=== PATIENT | male | born 1975 | race Caucasian/White ===

== ENCOUNTER 2023-02-13 19:28 | Inpatient (IN) | payer MEDICAID ==
[~2023-02-13] VITALS: Ht 177.8 cm; Wt 92.5 kg
[~2023-02-13 19:28] MED LIST: METF-1253
[2023-02-13 19:51] VITALS: BP 100/69; PULSE 100; RESP 16; TEMP 97.9; O2SAT 100
--- NOTE | 2023-02-13 20:01 | NUR ---
TO BED 6 FOLLOWING TRIAGE
--- NOTE | 2023-02-13 20:15 | NUR ---
48 Y/O M, AMBULATORY FROM HOME WITH C/O ABD PAIN ASSOCIATED WITH N/V AND DIARRHEA X 2-3 DAYS. DENIES FEVER, CHILL, BLOOD IN EMESIS. MOTHER AT BEDSIDE.
--- NOTE | 2023-02-13 20:20 | NUR ---
MD MCCORMICK AT BEDSIDE EXAMINING PT.
[2023-02-13] MEDS ORDERED: ONDANSETRON 4 MG/2 ML VIAL IVP ONE (20:30)
[2023-02-13] MEDS ORDERED: DICYCLOMINE 20 MG/2 ML VIAL IM ONE (20:30)
[2023-02-13] MEDS ORDERED: NACL 0.9% 1,000 ML IV ONE (20:30)
[2023-02-13 21:22] LABS: HEMATOCRIT 48.7 % (36-52); HEMOGLOBIN 16.7 g/dL (12.0-18.0); MEAN CORPUSCULAR HEMOGLOBIN 31 pg (27-31); MEAN CORPUSCULAR HGB CONC 34 g/dL (33-37); MEAN CORPUSCULAR VOLUME 89.1 fL (80-94); PLATELET COUNT (AUTO) 115 K/uL (140-450); RED BLOOD CELL COUNT(AUTO) 5.46 MIL/uL (4.20-6.10); RED CELL DISTRIBUTION WIDTH 13.1 % (11.6-13.7); WHITE BLOOD COUNT (AUTO) 7.6 K/uL (4.8-10.8)
[2023-02-13 21:32] LABS: ALBUMIN 3.1 g/dL (3.4-5.0); ANION GAP 11.5 (8-16); CARBON DIOXIDE 28.8 mmol/L (21-32); CREATININE 0.9 mg/dL (0.6-1.3); POTASSIUM 3.3 mmol/L (3.5-5.1); TOTAL BILIRUBIN 2.5 mg/dL (0.0-1.0)
[2023-02-13 21:33] LABS: BASOPHILS % (MANUAL) 0 % (0-2); EOSINOPHILS % (MANUAL) 4 % (0-4); LYMPHOCYTES % (MANUAL) 13 % (20-46); MONOCYTES % (MANUAL) 16 % (5-12)
[2023-02-13] MEDS ORDERED: MORPHINE SULFATE 4 MG/ML SYR IVP ONE (23:05)
--- NOTE | 2023-02-13 23:18 | NUR ---
PT TAKEN TO CT FOR [facility]
--- NOTE | 2023-02-14 02:10 | NUR ---
RAD at bedside for NGT placement confirmation.
--- NOTE | 2023-02-14 02:14 | NUR ---
MD MCCORMICK REVIEWED XRAY FOR PLACEMENT; OK TO CONNECT PT TO LOW INTERMITTENT SUCTIONING.
[2023-02-14] MEDS ORDERED: MORPHINE SULFATE 2 MG/ML SYR IVP PRN (02:40)
[2023-02-14] MEDS ORDERED: NACL 0.9% 1,000 ML IV ONE (02:40)
--- NOTE | 2023-02-14 03:21 | NUR ---
Patient will be admitted to care of MD BENITEZ. Admited to MS. Will go to room 112a. Belongings list completed. Report to TOMEKA Dyson.
[2023-02-14 03:35] VITALS: BP 135/93; PULSE 105; RESP 18; TEMP 97.2; O2SAT 94
--- NOTE | 2023-02-14 03:35 | NUR ---
RECEIVED PT FROM ER VIA [facility]. PT IS AAOX4 ON RA. PT CAME IN WITH ABD PAIN N/V/D. NG TUBE WAS PLACED IN ER ON LOW INTERMITTENT SUCTION. PT HAS IV ON LEFT FOREARM 20 GAUGE. SALINE LOCK. EDUCATED PT MOLD INSERT CHANGER LIGHT SYSTEM. CALL LIGHT WITHIN REACH. SAFETY MEASURES TAKEN. WILL CONTINUE TO MONITOR THE PT.
[2023-02-14] MEDS: metroNIDAZOLE 500 MG/NS PREMIX 100 ML IV SCH ×3 (04:25→20:24)
[2023-02-14] MEDS ORDERED: metroNIDAZOLE 500 MG/NS PREMIX 100 ML IV ONE (05:00)
--- NOTE | 2023-02-14 07:15 | NUR ---
ENDORSED PT TO DAY SHIFT NURSE FOR CONTINUITY OF CARE. PT IS STABLE.
--- NOTE | 2023-02-14 07:16 | NUR ---
RECEIVED BEDSIDE REPORT FOR CONTINUITY OF CARE. PT IS ASLEEP, AWAKEN BY NAME, NO SIGN OF DISTRESS. CALL LIGHT WITHIN REACH.
[2023-02-14] MEDS ORDERED: POTASSIUM CHLORIDE 40 MEQ, LIDOCAINE 1% 25 MG in NACL 0.9% 250 ML IV ONE (10:10)
[2023-02-14 10:43] VITALS: BP 129/95; PULSE 106; RESP 18; TEMP 99.7; O2SAT 95
[2023-02-14] MEDS: LEVOFLOXACIN 750 MG/D5W PREMIX 150 ML IV SCH (12:10)
[2023-02-14] MEDS ORDERED: ONDANSETRON 4 MG/2 ML VIAL IVP PRN (13:00)
[2023-02-14] MEDS ORDERED: LORazepam 2 MG/ML VIAL IVP SCH (13:13)
[2023-02-14 16:00] VITALS: BP 148/84; PULSE 89; RESP 18; TEMP 97.7; O2SAT 94
--- NOTE | 2023-02-14 16:40 | NUR ---
ACHS OF PT WAS 152 BUT DIDN'T COVER BEC PT STILL ON NPO AND NGT SUCTION.
[2023-02-14] MEDS: BLOOD GLUCOSE MONITORING 1 DEV DEV FS SCH ×2 (17:11→20:30)
--- NOTE | 2023-02-14 19:15 | NUR ---
GAVE BEDSIDE REPORT FROM SERGING MACHINE OPERATOR NURSE FOR CONTINUITY OF CARE. PT IS AWAKE, NO SIGN OF DISTRESS, ENDORSED NGT REMOVAL, CALL LIGHT WITHIN REACH. Addendum: 02/14/23 at 1932 by FELISA PAREDES RN GAVE BEDSIDE REPORT TO SERGING MACHINE OPERATOR NURSE FOR CONTINUITY OF CARE. PT IS AWAKE, NO SIGN OF DISTRESS, ENDORSED NGT REMOVAL, CALL LIGHT WITHIN REACH.
--- NOTE | 2023-02-14 19:30 | NUR ---
RECEIVED REPORT FROM DAY SHIFT RN FOR CONTINUITY OF CARE. PT IS RESTING IN BED WITH FAMILY BY BEDSIDE. NOT IN ANY DISTRESS. BREATHING EVEN AND UNLABORED. NG TUBE WAS REMOVED PER DOCTORS ORDER. CLEAR LIQUID DIET PLACED. POC DISCUSSED. WITH PT. WILL CONTINUE TO MONITOR.
[2023-02-14 20:00] VITALS: BP 131/91; PULSE 93; RESP 18; TEMP 96.6; O2SAT 94
--- NOTE | 2023-02-15 00:29 | NUR ---
PT CALLED ASKING FOR SOMETHING TO EAT. PT WAS GIVEN JELLO. NO OTHER COMPLAINS.
--- NOTE | 2023-02-15 04:30 | NUR ---
OBSERVED PT. PT IS SLEEPING COMFORTABLY IN BED. NOT IN ANY DISTRESS. BREATHING EVEN AND UNLABORED. WILL CONTINUE TO MONITOR THE PT.
[2023-02-15] MEDS: metroNIDAZOLE 500 MG/NS PREMIX 100 ML IV SCH ×3 (04:41→20:50)
[2023-02-15] MEDS: BLOOD GLUCOSE MONITORING 1 DEV DEV FS SCH ×4 (06:37→20:49)
[2023-02-15] MEDS: INSULIN LISPRO SLIDING SCALE 100 UNITS/ML VIAL SUBQ PRN ×3 (06:37→20:52)
--- NOTE | 2023-02-15 07:14 | NUR ---
receive the patient from the night monitor rn in rm 112A aox4 admitting diagnosis small bowel obstruction . for antibiotics therapy .
--- NOTE | 2023-02-15 07:18 | NUR ---
ENDORSED PT TO DAY SHIFT NURSE FOR CONTINUITY OF CARE. PT IS STABLE.
[2023-02-15 08:00] VITALS: BP 129/95; PULSE 106; RESP 18; TEMP 99.7; O2SAT 94
[2023-02-15 08:15] VITALS: PULSE 95; RESP 20; O2SAT 99
[2023-02-15] MEDS: LEVOFLOXACIN 750 MG/D5W PREMIX 150 ML IV SCH (09:14)
[2023-02-15 10:27] LABS: BASOPHILS % (AUTO) 0.4 % (0.0-2.0); EOSINOPHILS # (AUTO) 0.2 K/uL (0-0.4); EOSINOPHILS % (AUTO) 2.2 % (0.0-4.0); HEMATOCRIT 45.7 % (36-52); HEMOGLOBIN 15.7 g/dL (12.0-18.0); LYMPHOCYTES # (AUTO) 1.6 K/uL (2.0-11.5); LYMPHOCYTES % (AUTO) 18.9 % (20.5-51.1); MEAN CORPUSCULAR HEMOGLOBIN 30 pg (27-31); MEAN CORPUSCULAR HGB CONC 34 g/dL (33-37); MEAN CORPUSCULAR VOLUME 88.7 fL (80-94); MONOCYTES # (AUTO) 1.1 K/uL (0.8-1.0); MONOCYTES % (AUTO) 13.5 % (1.7-9.3); NEUTROPHILS # (AUTO) 5.3 K/uL (1.8-7.7); PLATELET COUNT (AUTO) 114 K/uL (140-450); RED BLOOD CELL COUNT(AUTO) 5.15 MIL/uL (4.20-6.10); RED CELL DISTRIBUTION WIDTH 12.6 % (11.6-13.7); WHITE BLOOD COUNT (AUTO) 8.2 K/uL (4.8-10.8)
[2023-02-15 10:43] LABS: ANION GAP 10.9 (8-16); CARBON DIOXIDE 27.7 mmol/L (21-32); CREATININE 0.7 mg/dL (0.6-1.3); POTASSIUM 3.6 mmol/L (3.5-5.1)
--- NOTE | 2023-02-15 11:43 | NUR ---
PATIENT HAS BEEN SCREENED AND CATEGORIZED HIGH NUTRITION RISK. PATIENT WILL BE SEEN WITHIN 1-2 DAYS OF ADMISSION. 02/15// PT WITH NAUSEA AND VOMITING X [address]
--- NOTE | 2023-02-15 15:30 | NUR ---
patent went shower for patient cleanliness and comfort
[2023-02-15 16:00] VITALS: BP 148/87; PULSE 89; RESP 18; TEMP 97.7; O2SAT 94
--- NOTE | 2023-02-15 18:55 | NUR ---
will endorse to manager night rn for continuity of care pritesh has bowel movement . started on clear liquid diet
[2023-02-15 20:00] VITALS: PULSE 77; RESP 16; O2SAT 98
[2023-02-16 00:04] VITALS: BP 144/87; PULSE 77; RESP 16; TEMP 97.7; O2SAT 98
[2023-02-16 04:00] VITALS: BP 130/94; PULSE 83; RESP 16; TEMP 96.7; O2SAT 98
[2023-02-16] MEDS: metroNIDAZOLE 500 MG/NS PREMIX 100 ML IV SCH ×3 (04:51→20:02)
[2023-02-16] MEDS: BLOOD GLUCOSE MONITORING 1 DEV DEV FS SCH ×4 (06:35→20:06)
--- NOTE | 2023-02-16 07:29 | NUR ---
RECEIVED REPORT FROM CREATIVE WRITING TEACHER NURSE FOR CONTINUITY OF CARE, PATIENT IS AWAKE, ALERT AND ORIENTED X4, AMBULATORY, AND CONTINENT. CURRENTLY ON ROOM AIR WITH NO SIGNS OF RESPIRATORY DISTRESS NOTED. PATIENT STATES NO PAIN, SKIN IS INTACT, NO OPEN WOUNDS. IV SITE LOCATED AT LEFT FOREARM 22 GAUGE. POC DISCUSSED, WHITE BOARD UPDATED, CALL LIGHT WITHIN REACH.
[2023-02-16 08:00] VITALS: PULSE 75; PULSE 77; RESP 16; RESP 17; O2SAT 97; O2SAT 98
--- NOTE | 2023-02-16 08:00 | NUR ---
Patient's Plan of Care was discussed and reviewed with CHRISTY: SHANTANU
[2023-02-16] MEDS: LEVOFLOXACIN 750 MG/D5W PREMIX 150 ML IV SCH (11:06)
--- NOTE | 2023-02-16 11:45 | NUR ---
PATIENT BLOOD SUGAR LEVEL OF 172, 2 UNITS OF HUMALOG WAS ADMINISTERED PER MD ORDER.
[2023-02-16] MEDS: INSULIN LISPRO SLIDING SCALE 100 UNITS/ML VIAL SUBQ PRN ×2 (12:17→20:06)
--- NOTE | 2023-02-16 14:19 | NUR ---
02/16/23 RD INITIAL ASSESSMENT COMPLETED PLEASE REFER TO NUTRITION ASSESSMENT UNDER CARE ACTIVITY FOR ESTIMATED NUTRITIONAL NEEDS. 1. CONTINUE CLEAR LIQUID DIET TOLERATED AND ONCE MEDICALLY APPROPRIATE ADVANCE TO FULL LIQUID DIET WITH CCHO 60 GRAMS, IF PATIENT TOLERATES ADVANCE TO SOFT TEXTURES CCHO 60GRAMS. 2. RD RECOMMENDS BANATROL TID FOR DIARRHEA WHICH WILL PROVIDE 120 CALORIES AND 0 GRAMS OF PROTEIN. PLEASE DISCONTINUE ONCE DIARRHEA STOPS. 3. RD WILL CONTINUE TO MONITOR PO INTAKE, WEIGHT, GI ISSUES AND NUTRITION RELATED LAB VALUES. 4. RD TO FOLLOW-UP 3-5 DAYS, MODERATE RISK JESSICA ROGERS RD
--- NOTE | 2023-02-16 14:25 | NUR ---
PATIENT RESTING COMFORTABLY, IV INFUSING WELL, NO SIGNS OF INFILTRATION. WILL CONTINUE MONITORING.
[2023-02-16 16:00] VITALS: BP 142/84; PULSE 98; RESP 18; TEMP 97.2; O2SAT 98
--- NOTE | 2023-02-16 16:19 | NUR ---
PATIENT BLOOD SUGAR LEVEL OF 145. NO COVERAGE NEEDED. WILL CONTINUE TO MONITOR THE PATIENT.
--- NOTE | 2023-02-16 16:38 | NUR ---
Hide Washer FREEZER WORKER conducted a Discharge Planning Assessment with pt. at bedside. Pt. was AOx4. Pt. was pleasant, maintained eye contact and her answers were appropriate. Demographics on the face sheet were confirmed. Pt. resides at his parents home with his sister, his own adult daughter, Kaya and his 18 year and 17-year-old children. FREEZER WORKER conducted a discharge planning assessment with pt. Pt. 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 Re. the Meth usage, pt. stated that was in the past and he has been able to stop cold turkey on his own several different times. Pt. stated the last time he quit was in . FREEZER WORKER asked pt. if she can bring him resources. FREEZER WORKER provide pt with DPOA, homeless resources, Substance abuse and AA contacts. Pt. FREEZER WORKER also educated pt. on how to get a PCP as pt. stated he has not been to the doctors in many years. Pt. is diabetic. His mom checks his glucose levels with her own supplies. 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 Pt. stated he gets GR, $251 and $281 food stamps. Pt. stated there is tension between he and his adult sister who also resides in parents home. Pt. stated he can go back to his parents home once he is discharged.
[2023-02-16 20:00] VITALS: BP 120/70; PULSE 72; RESP 16; TEMP 97.4; O2SAT 100
[2023-02-17 04:00] VITALS: BP 139/91; PULSE 84; RESP 16; O2SAT 98
[2023-02-17] MEDS: metroNIDAZOLE 500 MG/NS PREMIX 100 ML IV SCH (05:23)
[2023-02-17] MEDS: BLOOD GLUCOSE MONITORING 1 DEV DEV FS SCH (06:24)
[2023-02-17] MEDS: INSULIN LISPRO SLIDING SCALE 100 UNITS/ML VIAL SUBQ PRN (06:36)
[2023-02-17] MEDS ORDERED: MIRABULK PO (06:43)
[2023-02-17] MEDS ORDERED: METO-485 PO (06:44)
--- NOTE | 2023-02-17 07:20 | NUR ---
receive the patinet from the second shift supervisor rn Shade aox4 admitting diagnosis small bowel obstruction . possible discharge to home today
[2023-02-17 08:07] VITALS: PULSE 75; RESP 19; O2SAT 99
[2023-02-17 08:48] VITALS: BP 125/75; PULSE 68; RESP 20; TEMP 97.1
--- NOTE | 2023-02-17 09:22 | NUR ---
made discharge patient teaching . discontinue identification coffman intravenous port. discharge thru a wheelchair to the lobby with the mother to a waiting private car to home in a stable condition
== END 2023-02-17 09:38 | disposition home or self-care (01) | DRG 720 ==
LOC: MED 19:28 → MTU 02-14 02:57
PROVIDERS: ADMIT Family Medicine; ATTEND Family Medicine
DX: A41.9 Sepsis, unspecified organism (principal); K56.609 Unspecified intestinal obstruction, unspecified as to partial versus complete obstruction; D69.6 Thrombocytopenia, unspecified; E44.1 Mild protein-calorie malnutrition; E87.1 Hypo-osmolality and hyponatremia; K52.9 Noninfective gastroenteritis and colitis, unspecified; E11.9 Type 2 diabetes mellitus without complications; E87.6 Hypokalemia; Z68.29 Body mass index [BMI] 29.0-29.9, adult
CPT/HCPCS: 36415; 71045; 74250; 80048; 80053; 82948; 83690; 85025; 87081; 96361; 96372; 96374; 96375; 99285; J0500; J1815; J1956; J2001; J2060; J2270; J2405; J3480; J3490; J7030; Q0092; Q9967